=== PATIENT | male | born 1985 | race Caucasian/White ===

== ENCOUNTER 2017-06-07 20:48 | Emergency (ER) | payer OTHER ==
[~2017-06-07] VITALS: Ht 172.7 cm; Wt 65.5 kg
[2017-06-07 21:02] VITALS: TEMP 36.4; Ht 172.7 cm; Wt 65.5 kg
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
--- NOTE | 2017-06-07 21:36 | DIAGNOSTIC IMAGING REPORT ---
CHEST 2 VIEWS ROUTINE CLINICAL HISTORY: injury trauma COMPARISON STUDY: No previous studies for comparison. FINDINGS: The bones soft tissues and hemidiaphragms are normal. The cardiomediastinal silhouette is normal. The lungs are clear. The pulmonary vasculature is normal. Fracture midshaft left clavicle IMPRESSION: Fracture midshaft left clavicle. Otherwise negative chest. The above report was generated using voice recognition software. It may contain grammatical, syntax or spelling errors. Electronically signed by: Baron Martinez M.D. 06/07/2017 9:35 PM Dictated Date/Time: 06/07/2017 9:34 PM
--- NOTE | 2017-06-07 21:37 | DIAGNOSTIC IMAGING REPORT ---
LEFT CLAVICLE CLINICAL HISTORY: injury trauma COMPARISON: None. DISCUSSION: Fracture midshaft left clavicle. Moderate overlap of fracture fragments. Third fragment oriented in a vertical projection at the fracture site. Acromioclavicular joint is intact. There is no evidence for soft tissue swelling. IMPRESSION: Comminuted fracture midshaft left clavicle The above report was generated using voice recognition software. It may contain grammatical, syntax or spelling errors. Electronically signed by: Baron Martinez M.D. 06/07/2017 9:36 PM Dictated Date/Time: 06/07/2017 9:35 PM
--- NOTE | 2017-06-07 21:38 | DIAGNOSTIC IMAGING REPORT ---
LEFT SHOULDER MIN 2 VIEWS ROUTINE CLINICAL HISTORY: injury trauma COMPARISON: None. DISCUSSION: Comminuted fracture midshaft left clavicle. Moderate overlap of fracture fragments. Glenohumeral and acromioclavicular joints are intact. No evidence for pneumothorax. There is no evidence for soft tissue swelling. IMPRESSION: Comminuted fracture midshaft left clavicle. Otherwise negative study. The above report was generated using voice recognition software. It may contain grammatical, syntax or spelling errors. Electronically signed by: Baron Martinez M.D. 06/07/2017 9:37 PM Dictated Date/Time: 06/07/2017 9:36 PM
[2017-06-07] MEDS ORDERED: OXYCODONE IR HOME PACK PO ONE (22:00)
[2017-06-07] MEDS ORDERED: BCTROWC EXT (22:11)
[2017-06-07] MEDS ORDERED: OXYC1TAB3 PO (22:11)
[2017-06-07 22:34] VITALS: BP 104/87; PULSE 75; O2SAT 98
== END 2017-06-07 22:30 | disposition home or self-care (01) ==
LOC: C.EDB 20:50 → C.EDD 22:30
DX: S42.022A Displaced fracture of shaft of left clavicle, initial encounter for closed fracture (principal); S40.212A Abrasion of left shoulder, initial encounter; S30.811A Abrasion of abdominal wall, initial encounter; V19.9XXA Pedal cyclist (driver) (passenger) injured in unspecified traffic accident, initial encounter; Y93.55 Activity, bike riding; Z87.891 Personal history of nicotine dependence

== ENCOUNTER 2017-06-09 11:37 | Day surgery (SDC) | payer OTHER ==
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
[~2017-06-09] VITALS: Ht 172.7 cm; Wt 66.0 kg
[~2017-06-09 11:37] MED LIST: BCTROWC EXT; CEFAZOLIN 2000 MG/60 ML D5W IV SCH; OXYC1TAB3 PO; PATIENT'S HEIGHT AND/OR WEIGHT NEEDED SCH
[2017-06-09 12:11] VITALS: BP 112/71; PULSE 64; TEMP 37.1; O2SAT 97; Ht 172.7 cm; Wt 66.0 kg
[2017-06-09 12:26] LABS: BASO % 0.5 %; BASO ABS # 0.03 K/uL (0-0.2); EOS % 1.1 %; HEMATOCRIT 38.7 % (42-52); IG% 0.2 %; LYMPH % 27.2 %; LYMPH ABS # 1.67 K/uL (1.2-3.4); MEAN CELL VOLUME 86.6 fL (80-100); MEAN CORPUSCULAR HEMOGLOBIN 30.2 pg (25-34); MEAN PLATELET VOLUME 10.5 fL (7.4-10.4); MONO % 10.6 %; NEUT % 60.4 %; PLATELET COUNT 245 K/uL (130-400); RED BLOOD COUNT 4.47 M/uL (4.7-6.1); WHITE BLOOD COUNT 6.13 K/uL (4.8-10.8)
[2017-06-09] MEDS ORDERED: CEFAZOLIN SOD 1000MG/55 ML D5W IV ONE (12:29)
--- NOTE | 2017-06-09 12:35 | History & Physical Bridge Note ---
H&P Re-Evaluation Bridge Note: I have examined the patient, reviewed the History & Physical and in the interval since the performance of the History & Physical I have noted the following changes of clinical significance: No changes noted
[2017-06-09 12:46] LABS: COMPLETE YES; MEAN CORPUSCULAR HGB CONC 34.9 g/dl (32-36)
[2017-06-09 12:50] LABS: BUN/CREATININE RATIO 14.7 (10-20); CALCIUM 8.6 mg/dl (8.5-10.1); CREATININE 0.95 mg/dl (0.60-1.40)
[2017-06-09] MEDS ORDERED: FENTANYL CITRATE INJ 50 MCG/1 ML 2 ML VIAL ONE ×2 (14:00→14:47)
[2017-06-09] MEDS ORDERED: ONDANSETRON INJ 2 MG/ML 2 ML VIAL ONE (14:00)
[2017-06-09] MEDS ORDERED: DEXAMETHASONE SOD INJ 4 MG/ML VIAL ONE (14:00)
[2017-06-09] MEDS ORDERED: PROPOFOL IV EMULSION 10 MG/ML 20 ML VIAL IV ONE (14:00)
[2017-06-09] MEDS ORDERED: ROCURONIUM BROMIDE 10 MG/ML 5 ML VIAL ONE (14:00)
[2017-06-09] MEDS ORDERED: LIDOCAINE HCL 2% 2 ML VIAL (20MG/ML) ONE (14:00)
[2017-06-09] MEDS ORDERED: MIDAZOLAM HCL 1 MG/ML 2ML VIAL ONE (14:00)
[2017-06-09] MEDS ORDERED: BUPIVACAINE/EPINEPHRINE 0.5% MPF 1:200,000 10 ML VIAL ONE (14:05)
[2017-06-09] MEDS ORDERED: BACITRACIN 50000 UNIT VIAL ONE (14:05)
[2017-06-09] MEDS ORDERED: ASPEC81 PO (14:34)
[2017-06-09] MEDS ORDERED: OXYC-57 PO (14:34)
--- NOTE | 2017-06-09 14:38 | Discharge Instructions ---
Discharge Instructions Date of Service Jun 09, 2017. Admission Reason for Admission: Left Clavicle: Orif Clavicle Discharge Discharge Diagnosis / Problem: Left clavicle fracture Discharge Goals Goal(s): Decrease discomfort, Improve function Activity Recommendations Activity Limitations: per Instructions/Follow-up section Lifting Limitations: no more than 5 pounds . Instructions / Follow-Up Instructions / Follow-Up ACTIVITY RECOMMENDATIONS: * Avoid lifting anything heavier than a medium water glass until your first post operative visit. SPECIAL CARE INSTRUCTIONS: * Your bandage should be left in place until 7 days after surgery. After 7 days, you may remove and cover with dry gauze if there is drainage. Showering after 7 days is allowed. * Some drainage onto the dressing may occur. This is normal. * If the bandage feels excessively tight, you may loosen the elastic bandage. Then call the physician's office for further instructions. * Use a sling at all times. You may do range of motion with your elbow. * You should move your fingers regularly (50-100 motions per hour) unless otherwise instructed. SPECIAL PRECAUTIONS: * If you notice increased drainage, fever over 101 degrees F. or severe, unremitting pain, call your physician/office at . * You may have been prescribed pain medication. If you experience nausea and/or skin rash, discontinue this medication and contact our office for an alternative medication. FOLLOW UP VISIT: If appointment is not already scheduled: Please call [facility] to make a follow-up appointment for 2 weeks after your surgery at . Current Hospital Diet Patient's current hospital diet: Discharge Diet Recommended Diet: Regular Diet Pending Studies Studies pending at discharge: no Medical Emergencies . Who to Call and When: Medical Emergencies: If at any time you feel your situation is an emergency, please call [phone] immediately. . Non-Emergent Contact Non-Emergency issues call your: Surgeon Call Non-Emergent contact if: temperature is above 101, your pain is not controlled, your pain is worsening, wound has increased drainage, wound has increased redness . "Provider Documentation" section prepared by Sam Russ. . VTE Core Measure Inpt VTE Proph given/why not?: SCD's
[2017-06-09] MEDS ORDERED: ONDANSETRON INJ 2 MG/ML 2 ML VIAL IV PRN (15:15)
[2017-06-09] MEDS ORDERED: ATROPINE SULFATE 0.1 MG/ML 5ML SYR IV PRN (15:15)
[2017-06-09] MEDS ORDERED: EpHEDrine SULFATE INJ 50 MG/ML AMP IV PRN (15:15)
[2017-06-09] MEDS ORDERED: FENTANYL CITRATE INJ 50 MCG/1 ML 2 ML VIAL IV PRN (15:15)
[2017-06-09] MEDS ORDERED: HYDROmorphone INJ 1 MG/ML SYR IV PRN (15:15)
[2017-06-09] MEDS ORDERED: PROMETHAZINE HCL INJ 6.25 MG in SODIUM CHLORIDE 0.9% 50ML 50 ML IV PRN (15:15)
[2017-06-09] MEDS ORDERED: HYDROmorphone INJ 2 MG/ML SYR/VIAL ONE (15:20)
--- NOTE | 2017-06-09 16:49 | DIAGNOSTIC IMAGING REPORT ---
LEFT CLAVICLE CLINICAL HISTORY: LT ORIF CLAVICLE COMPARISON STUDY: Left shoulder 06/07/2017. FINDINGS: Total fluoroscopy time was 7 seconds. 2 fluoroscopic spot images of the left clavicle. Cortical plate transfixed with screws bridging the left clavicle fracture. The alignment is near-anatomic. The hardware is intact. IMPRESSION: Fluoroscopy provided for internal fixation of a left clavicle fracture. Electronically signed by: Gallito Aden M.D. 06/09/2017 4:48 PM Dictated Date/Time: 06/09/2017 4:47 PM
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
[2017-06-09] MEDS ORDERED: OXYCODONE/ACETAMINOPHEN 5-325 TAB PO PRN (17:00)
--- NOTE | 2017-06-09 17:17 | Anesthesiology Progress Note ---
Anesthesia Post Op Note Date & Time Jun 09, 2017 at 17:17 Vital Signs Pain Intensity: 0 Vital Signs Past 12 Hours Date Time Temp Pulse Resp B/P (MAP) Pulse Ox O2 Delivery O2 Flow Rate FiO2 06/09/17 17:10 89 16 136/93 100 Oxymask 10 06/09/17 17:00 90 16 134/83 100 Oxymask 10 06/09/17 16:50 67 16 119/86 100 Oxymask 10 06/09/17 16:44 36.4 66 16 131/73 100 Oxymask 10 06/09/17 12:11 37.1 64 18 112/71 (85) 97 Room Air Notes Mental Status: alert / awake / arousable, participated in evaluation Pt Amnestic to Procedure: Yes Nausea / Vomiting: adequately controlled Pain: adequately controlled Airway Patency, RR, SpO2: stable & adequate BP & HR: stable & adequate Hydration State: stable & adequate Anesthetic Complications: no major complications apparent
[2017-06-09 17:30] VITALS: BP 129/77; PULSE 85; TEMP 36.9; O2SAT 98
[2017-06-09 18:00] VITALS: BP 118/74; PULSE 98; O2SAT 97
[2017-06-09 18:30] VITALS: BP 127/71; PULSE 88; TEMP 36.7; O2SAT 97
== END 2017-06-09 18:45 | disposition home or self-care (01) ==
LOC: C.OR 11:37
PROVIDERS: ATTEND Orthopaedic Surgery Sports Medicine
DX: S42.002A Fracture of unspecified part of left clavicle, initial encounter for closed fracture (principal); V11.0XXA Pedal cycle driver injured in collision with other pedal cycle in nontraffic accident, initial encounter; Y93.55 Activity, bike riding; Z87.891 Personal history of nicotine dependence